=== PATIENT | female | born 1960 | race Caucasian/White ===

== ENCOUNTER → 2016-12-12 | Outpatient (CLI) | payer OTHER ==
[~2016-12-12] MED LIST: ALEVE220 M1 PO; BIOTIN10000 MC1 PO; CALCIUM600 MG PO; CATAPRES0.2 MG PO; CLARITIN D 24HR1 TAB PO; FISH OIL1000 MG PO; MULTI-DAY VITA1 EACH; NIASPAN500 MG PO; PERCOCET 5-3251 EACH PO; PREMPHASE 0.621 EACH PO; PRILOSEC20 MG PO; TYLENOL/COD#31 TAB PO; ZANTAC (NON-FO150 MG PO; [UNRECOGNIZED DRUG - OTHER] PO
== END | disposition disaster alternative care site (69) ==
LOC: GRAD 14:33
DX: Z09 Encounter for follow-up examination after completed treatment for conditions other than malignant neoplasm (principal); Z87.442 Personal history of urinary calculi; K59.00 Constipation, unspecified